=== PATIENT | female | born 1970 | race Caucasian/White ===

== ENCOUNTER 2017-02-13 07:15 | Day surgery (SDC) | payer OTHER ==
--- NOTE | 2017-02-11 12:08 | HISTORY AND PHYSICAL E ---
History and Physical NAME: DAVID REINOSO : 1970 AGE: 46Y ADMITTED: 02/13/2017 ROOM: HISTORY: A 46-year-old female presented with strong family history of colorectal polyps. Her sister has multiple polyps. SOCIAL HISTORY: . Does not smoke. Does not drink. PAST SURGICAL HISTORY: Lap banding 2013. She does have ganglion wrist bilateral. REVIEW OF SYSTEMS: HEAD, EYES, EARS, NOSE AND THROAT: Negative. RESPIRATORY: Negative. CARDIAC: Negative. ENDOCRINE: Hypothyroid. GASTROINTESTINAL: History of gastric banding. Family history of colorectal polyp, sister. FAMILY HISTORY: Father is alive. Mom is alive, she has breast lesion. PHYSICAL EXAMINATION: VITAL SIGNS: 46. Blood pressure 120/90. Weight 202. Pulse is 80, respirations 16, temp is 98. HEAD, EYES, EARS, NOSE AND THROAT: Normal. ABDOMEN: Soft. NEUROLOGIC: Exam negative. MEDICATIONS: 1. Synthroid. 2. Effexor. 3. Metformin. 4. Ibuprofen. CONCLUSIONS: Colon screening. PLAN: Colonoscopy. DICTATING PHYSICIAN: FARHAD WILKINS M.D. 1221M [id number] PHY#: [id number] ID: [id number] JOB#: [id number] ACCT: [id number] cc:[facility] FARHAD COLLADO M.D. >
[2017-02-13] MEDS ORDERED: GLYCOPYRROLATE INJ 0.4 MG/2 ML VIAL ONE (07:57)
[2017-02-13] MEDS ORDERED: LIDOCAINE 2% JELLY 30 ML TUBE ONE (07:57)
[2017-02-13] MEDS ORDERED: NALOXONE HCL INJ/PF 0.4 MG/1 ML SDV ONE (07:57)
[2017-02-13] MEDS ORDERED: ONDANSETRON HCL INJ/PF 4 MG/2 ML SDV ONE (07:57)
[2017-02-13] MEDS ORDERED: FLUMAZENIL INJ 0.5 MG/5 ML VIAL IV ONE (07:58)
[2017-02-13] MEDS ORDERED: EPINEPHRINE INJ 1 MG/10 ML DISP.SYRIN ONE (07:58)
[2017-02-13] MEDS ORDERED: MIDAZOLAM 2 MG/2 ML INJ ONE (07:58)
[2017-02-13] MEDS ORDERED: GLUCAGON,HUMAN RECOMB 1 MG INJ ONE (07:58)
[2017-02-13] MEDS: MIDAZOLAM 2 MG/2 ML INJ ONE ×3 (08:11→08:28)
[2017-02-13] MEDS: FENTANYL CITRATE INJ/PF 100 MCG/2 ML AMPUL ONE ×3 (08:13→08:25)
[2017-02-13 09:42] VITALS: BP 113/85
--- NOTE | 2017-02-14 19:43 | DISCHARGE SUMMARY E ---
Discharge Summary NAME: DAVID REINOSO : 1970 AGE: 46Y ADMITTED: 02/13/2017 DISCHARGED: 02/13/2017 HISTORY : The patient is a 46-year-old female, allergic to SEPTRA presented for colon screening. She does have family history of polyps in sister. Colonoscopy completed to the cecum. She did have a small 3 mm polyp midascending colon, biopsy obtained. DISCHARGE PLAN: Soft diet. Hold aspirin and nonsteroidal. Awaiting biopsy results. Baseline CBC. DICTATING PHYSICIAN: FARHAD WILKINS M.D. 1221M 01 PHY#: [id number] ID: [id number] JOB#: [id number] ACCT: [id number] cc:FARHAD WILKINS M.D. [facility] >
--- NOTE | 2017-02-14 19:45 | OPERATIVE REPORT E ---
Operative Report NAME: DAVID REINOSO : 1970 AGE: 46Y DATE OF SURGERY: 02/13/2017 ROOM: PREOPERATIVE DIAGNOSES: 1. COLON SCREENING. 2. FAMILY HISTORY OF POLYPS, SISTER. POSTOPERATIVE DIAGNOSIS: SMALL SESSILE POLYP 2 MM IN THE PROXIMAL ASCENDING, BIOPSIED WITH SOME DIFFICULTY. IT IS HITTING AROUND THE FOLD. OPERATION: Colonoscopy. SURGEON: FARHAD WILKINS M.D. ANESTHESIA: The patient was given Versed 4, fentanyl 125. Adequate sedation. TISSUE REMOVED OR ALTERED: Biopsy polyp 2 to 3 mm in size in the proximal ascending colon hidden around the fold. PROCEDURE: Rectal exam; normal. Sigmoid descending colon; redundant, normal. Transverse colon; normal. Ascending colon; small 2 to 3 mm size polyp in the proximal ascending. Cecum otherwise normal. Scope withdrawn cecum, ascending, as mentioned biopsy obtained from a small polyp transverse colon, sigmoid, descending all the way to the rectum. RECOMMENDATIONS: Awaiting biopsy results. Consider followup colonoscopy 1 to 2 years regarding a polyp in the mid-ascending colon, small 2 to 3 mm and 1 to 2 year followup is recommended pending biopsy results. DICTATING PHYSICIAN: FARHAD WILKINS M.D. 1221M 0857 PHY#: [id number] ID: [id number] JOB#: [id number] ACCT: [id number] cc:FARHAD WILKINS M.D. [facility] >
== END 2017-02-13 10:00 | disposition home or self-care (01) ==
LOC: END 07:15
PROVIDERS: ATTEND Specialist
PROC: 0DBM8ZX Excision of Descending Colon, Via Natural or Artificial Opening Endoscopic, Diagnostic (ICD-10-PCS; principal; 2017-02-13 08:00)
DX: Z12.11 Encounter for screening for malignant neoplasm of colon (principal); D12.2 Benign neoplasm of ascending colon; Z83.71 Family history of colonic polyps; E03.9 Hypothyroidism, unspecified; Z88.3 Allergy status to other anti-infective agents; Z79.84 Long term (current) use of oral hypoglycemic drugs; Z79.899 Other long term (current) drug therapy; Z79.1 Long term (current) use of non-steroidal anti-inflammatories (NSAID)
CPT/HCPCS: 45380; 88305 ×2; J2250; J3010; J1610; J2405; J0171; J2310; J3490